=== PATIENT | male | born 1950 | race Caucasian/White ===

== ENCOUNTER 2020-10-09 15:30 | Inpatient (IN) | payer MEDICARE, OTHER ==
[~2020-10-09 15:30] MED LIST: ANTIVERT25 MG PO; ASPIRIN EC81 MG PO; CIPRO500 MG PO; FLOMAX0.4 MG PO; NORCO 5-325 TA1 EACH PO; ONDANSETRON ODT4 MG SL; SYNTHROID50 MCG PO; TRAMADOL HCL50 MG PO; VITAMIN D250000 UNIT PO
[2020-10-09 16:32] LABS: BASOPHIL 0.9 % (0-2); EOSINOPHIL 1.7 % (0-7); HCT 36.5 % (42.0-52.0); HGB 10.8 g/dl (13.2-18.0); LYMPHOCYTE 12.8 % (15-48); MCH 25.8 pg (25.0-31.0); MCHC 29.6 g/dL (32.0-36.0); MCV 87.1 fL (78.0-100.0); MONOCYTE 6.6 % (0-12); MPV 11.7 fL (6.0-9.5); NEUTROPHIL 77.6 % (41-80); PLT 280 K/uL (150-400); RBC 4.19 M/uL (4.70-6.00); RDW 14.4 % (11.5-14.0); WBC 8.5 K/uL (4.0-10.5)
[2020-10-09 16:36] LABS: PROTHROMBIN TIME 12.5 SECONDS (11.4-13.6)
[2020-10-09 16:51] LABS: ALBUMIN 3.4 g/dL (3.4-5.0); BILIRUBIN - TOTAL 0.3 mg/dL (0.2-1.0); BUN/CREAT RATIO (CALC) 17.6 RATIO; CREATININE 1.25 mg/dL (0.67-1.17); GLOBULIN (CALCULATION) 3.5 g/dL; MAGNESIUM 1.9 mg/dL (1.8-2.4); POTASSIUM 3.8 mmol/L (3.5-5.1); TOTAL PROTEIN 6.9 g/dL (6.4-8.2)
[2020-10-09 16:57] LABS: PRO-BNP 277 pg/mL (<125)
[2020-10-09 18:28] LABS: BILIRUBIN NEGATIVE (NEGATIVE); BLOOD 1+ Ery/uL (NEGATIVE); CLARITY CLEAR (CLEAR); COLOR YELLOW (YELLOW); GLUCOSE (U) NORMAL (NORMAL); LEUKOCYTES NEGATIVE Leu/uL (NEGATIVE); NITRITE NEGATIVE (NEGATIVE); PROTEIN NEGATIVE (NEGATIVE); SPECIFIC GRAVITY 1.025 (1.001-1.030); UROBILINOGEN 0.2 mg/dL (0.2-1.0)
[2020-10-09 18:48] LABS: BACTERIA TRACE; SQUAMOUS EPITHELIAL CELLS RARE
[2020-10-10 06:14] LABS: BASOPHIL 0.9 % (0-2); EOSINOPHIL 2.6 % (0-7); HGB 9.9 g/dl (13.2-18.0); LYMPHOCYTE 22.7 % (15-48); MCH 26.2 pg (25.0-31.0); MCV 87.3 fL (78.0-100.0); MONOCYTE 10.3 % (0-12); MPV 11.2 fL (6.0-9.5); NEUTROPHIL 63.3 % (41-80); NRBC 0; PLT 220 K/uL (150-400); RBC 3.78 M/uL (4.70-6.00); RDW 14.6 % (11.5-14.0); WBC 5.8 K/uL (4.0-10.5)
[2020-10-10 06:28] LABS: BUN/CREAT RATIO (CALC) 17.1 RATIO; CREATININE 1.17 mg/dL (0.67-1.17); POTASSIUM 4.2 mmol/L (3.5-5.1)
[2020-10-10] MEDS ORDERED: LIPITOR40 MG PO (11:28)
[2020-10-10] MEDS ORDERED: BRILINTA90 MG PO (11:30)
[2020-10-10] MEDS ORDERED: HYGROTON 25MG T25 MG PO (11:30)
[2020-10-10] MEDS ORDERED: VITAMIN B-121000 MC1 PO (11:31)
[2020-10-10] MEDS ORDERED: IRON159 MG PO (11:31)
[2020-10-10] MEDS ORDERED: LOPRESSOR25 MG PO (11:33)
[2020-10-10] MEDS ORDERED: ISOSORBIDE MONO30 MG PO (11:33)
[2020-10-10] MEDS ORDERED: NITROSTAT0.4 MG SL (11:35)
[2020-10-10] MEDS ORDERED: RANEXA500 MG PO (11:36)
--- NOTE | 2020-10-11 10:42 | NUR ---
Pt triggered for nutrition assessment 2' nursing admission. MST score 3; patient reporting recent wt loss. Admission wt 214lb; reported wt 216lb. Patient currently NPO for testing. Prior to NPO diet, pt taking 100% of cardiac diet; no GI issues documented. Will f/u when diet resumes.
--- NOTE | 2020-10-11 17:45 | NUR ---
PT REPORTS HE LIVES ALONE; PT REPORTS HE DOES HIS ADL'S PLEASE ADVISE OF ANY DISCHARGE NEEDS
== END 2020-10-11 18:50 | disposition home or self-care (01) | DRG 303 ==
LOC: FER 15:30 → FMS 20:02
PROVIDERS: Emergency Medicine; Nurse Practitioner; ADMIT Internal Medicine
DX: I25.10 Atherosclerotic heart disease of native coronary artery without angina pectoris (principal); D64.9 Anemia, unspecified; R10.9 Unspecified abdominal pain; E03.9 Hypothyroidism, unspecified; N20.0 Calculus of kidney; Z20.822 Contact with and (suspected) exposure to COVID-19; Z95.5 Presence of coronary angioplasty implant and graft; I25.2 Old myocardial infarction
CPT/HCPCS: 36415; 71275; 76705; 80048; 80053; 80061; 81001; 83690; 83735; 83880; 84484; 85025; 85610; 93005; J1170; J1650; J2405; J2550; J7030; Q9967; U0002

== ENCOUNTER 2020-11-01 06:04 | Inpatient (IN) | payer MEDICARE, OTHER ==
[~2020-11-01] VITALS: Ht 180.3 cm; Wt 97.2 kg
[~2020-11-01 06:04] MED LIST changes: +BRILINTA90 MG PO; +HYGROTON 25MG T25 MG PO; +IRON159 MG PO; +ISOSORBIDE MONO30 MG PO; +LIPITOR40 MG PO; +LOPRESSOR25 MG PO; +NITROSTAT0.4 MG SL; +RANEXA500 MG PO; +VITAMIN B-121000 MC1 PO
[2020-11-01 07:04] LABS: EOSINOPHIL 2.3 % (0-7); HCT 34.1 % (42.0-52.0); HGB 10.3 g/dl (13.2-18.0); LYMPHOCYTE 11.1 % (15-48); MCH 25.4 pg (25.0-31.0); MCHC 30.2 g/dL (32.0-36.0); MCV 84.2 fL (78.0-100.0); MONOCYTE 7.8 % (0-12); MPV 11.7 fL (6.0-9.5); NEUTROPHIL 77.5 % (41-80); NRBC 0; PLT 255 K/uL (150-400); RBC 4.05 M/uL (4.70-6.00); RDW 15.1 % (11.5-14.0); WBC 9.1 K/uL (4.0-10.5)
[2020-11-01 07:30] LABS: INR 1.01 (0.9-1.2); PROTHROMBIN TIME 12.6 SECONDS (11.4-13.6); PTT 28.6 SECONDS (22.2-34.7)
[2020-11-01 07:41] LABS: ALBUMIN 3.1 g/dL (3.4-5.0); BILIRUBIN - TOTAL 0.3 mg/dL (0.2-1.0); CREATININE 1.15 mg/dL (0.67-1.17); GLOBULIN (CALCULATION) 3.5 g/dL; POTASSIUM 4.2 mmol/L (3.5-5.1); TOTAL PROTEIN 6.6 g/dL (6.4-8.2)
[2020-11-01 07:48] LABS: LACTIC ACID 1.8 mmol/L (0.4-1.9); PRO-BNP 421 pg/mL (<125)
[2020-11-01 10:41] LABS: BILIRUBIN NEGATIVE (NEGATIVE); BLOOD 3+ Ery/uL (NEGATIVE); CLARITY CLEAR (CLEAR); COLOR YELLOW (YELLOW); GLUCOSE (U) NORMAL (NORMAL); LEUKOCYTES NEGATIVE Leu/uL (NEGATIVE); NITRITE NEGATIVE (NEGATIVE); PROTEIN NEGATIVE (NEGATIVE); SPECIFIC GRAVITY 1.015 (1.001-1.030); UROBILINOGEN 0.2 mg/dL (0.2-1.0)
[2020-11-01 10:52] LABS: URINARY RBC 20-50
[2020-11-01 10:53] LABS: BACTERIA TRACE
[2020-11-01 16:56] LABS: FLU B NEGATIVE B (NEGATIVE B)
[2020-11-02 06:35] LABS: BASOPHIL 0.7 % (0-2); HGB 9.5 g/dl (13.2-18.0); LYMPHOCYTE 13.1 % (15-48); MCH 25.3 pg (25.0-31.0); MCHC 29.7 g/dL (32.0-36.0); MCV 85.1 fL (78.0-100.0); MONOCYTE 11.3 % (0-12); MPV 11.6 fL (6.0-9.5); NEUTROPHIL 72.6 % (41-80); NRBC 0; PLT 231 K/uL (150-400); RBC 3.76 M/uL (4.70-6.00); RDW 15.2 % (11.5-14.0); WBC 7.1 K/uL (4.0-10.5)
[2020-11-02 07:10] LABS: BUN/CREAT RATIO (CALC) 12.9 RATIO; CREATININE 1.39 mg/dL (0.67-1.17); FT4 (FREE T4) 0.6 ng/dL (0.76-1.46); POTASSIUM 4.2 mmol/L (3.5-5.1)
[2020-11-02] MEDS ORDERED: VENTOLIN HFA IN18 GM INH (10:25)
[2020-11-02] MEDS ORDERED: AZITHROMYCIN250 MG PO (10:25)
== END 2020-11-02 11:50 | disposition home or self-care (01) | DRG 203 ==
LOC: FER 06:04 → FMS 08:56
PROVIDERS: Emergency Medicine Emergency Medical Services; ADMIT Internal Medicine
DX: J20.9 Acute bronchitis, unspecified (principal); E03.9 Hypothyroidism, unspecified; I25.10 Atherosclerotic heart disease of native coronary artery without angina pectoris; E53.8 Deficiency of other specified B group vitamins; D64.9 Anemia, unspecified; E55.9 Vitamin D deficiency, unspecified; Z20.822 Contact with and (suspected) exposure to COVID-19; I25.2 Old myocardial infarction; Z95.5 Presence of coronary angioplasty implant and graft; Z79.82 Long term (current) use of aspirin; Z79.899 Other long term (current) drug therapy; Z90.49 Acquired absence of other specified parts of digestive tract; Z98.890 Other specified postprocedural states
CPT/HCPCS: 36415; 71045; 80048; 80053; 81001; 83605; 83880; 84145; 84439; 84443; 84484; 85025; 85610; 85730; 87040; 87088; 87804; 87899; 93005; 94640; 94664; J2405; J2543; U0002

== ENCOUNTER 2021-03-07 13:50 | Day surgery (SDCO) | payer MEDICARE, OTHER ==
[~2021-03-07] VITALS: Ht 180.3 cm; Wt 97.0 kg
[~2021-03-07 13:50] MED LIST changes: +AZITHROMYCIN250 MG PO; +VENTOLIN HFA IN18 GM INH
[2021-03-07 14:31] LABS: BASOPHIL 1.1 % (0-2); EOSINOPHIL 1.4 % (0-7); HCT 31.1 % (42.0-52.0); LYMPHOCYTE 11.9 % (15-48); MCH 22.2 pg (25.0-31.0); MCHC 28.9 g/dL (32.0-36.0); MCV 76.6 fL (78.0-100.0); MPV 11.1 fL (6.0-9.5); NEUTROPHIL 77.2 % (41-80); NRBC 0; PLT 311 K/uL (150-400); RBC 4.06 M/uL (4.70-6.00); RDW 16.5 % (11.5-14.0); WBC 8.5 K/uL (4.0-10.5)
[2021-03-07 15:04] LABS: ALBUMIN 2.9 g/dL (3.4-5.0); BILIRUBIN - TOTAL 0.3 mg/dL (0.2-1.0); BUN/CREAT RATIO (CALC) 15.2 RATIO; CREATININE 1.25 mg/dL (0.67-1.17); GLOBULIN (CALCULATION) 2.7 g/dL; POTASSIUM 3.8 mmol/L (3.5-5.1); TOTAL PROTEIN 5.6 g/dL (6.4-8.2)
[2021-03-07 15:05] LABS: BILIRUBIN NEGATIVE (NEGATIVE); BLOOD 3+ Ery/uL (NEGATIVE); CLARITY CLEAR (CLEAR); COLOR YELLOW (YELLOW); GLUCOSE (U) NORMAL (NORMAL); LEUKOCYTES NEGATIVE Leu/uL (NEGATIVE); NITRITE NEGATIVE (NEGATIVE); PROTEIN 1+ mg/dL (NEGATIVE); SPECIFIC GRAVITY >=1.030 (1.001-1.030); UROBILINOGEN 0.2 mg/dL (0.2-1.0); pH 5.5 (5.0-9.0)
[2021-03-07 15:13] LABS: CORONAVIRUS 2019 SARS-COV-2 NEGATIVE (NEGATIVE); INFLUENZA A NAA NEGATIVE (NEGATIVE)
[2021-03-07 15:30] LABS: BACTERIA 1+; URINARY RBC 20-50
[2021-03-07 15:31] LABS: RENAL EPITHELIAL CELLS RARE
[2021-03-08 06:01] LABS: BASOPHIL 1.3 % (0-2); EOSINOPHIL 3.9 % (0-7); HCT 32.2 % (42.0-52.0); HGB 8.9 g/dl (13.2-18.0); LYMPHOCYTE 20.9 % (15-48); MCH 21.9 pg (25.0-31.0); MCHC 27.6 g/dL (32.0-36.0); MCV 79.3 fL (78.0-100.0); MONOCYTE 8.7 % (0-12); MPV 11.2 fL (6.0-9.5); NEUTROPHIL 64.8 % (41-80); NRBC 0; PLT 301 K/uL (150-400); RBC 4.06 M/uL (4.70-6.00); RDW 16.8 % (11.5-14.0); WBC 6.7 K/uL (4.0-10.5)
[2021-03-08 06:17] LABS: BUN/CREAT RATIO (CALC) 15.6 RATIO; CREATININE 1.28 mg/dL (0.67-1.17)
[2021-03-08] MEDS ORDERED: PROTONIX 40MG T40 MG PO (15:40)
[2021-03-08] MEDS ORDERED: PLAVIX75 MG PO (15:40)
[2021-03-08] MEDS ORDERED: ISOSORBIDE MONO60 MG PO (15:40)
== END 2021-03-08 16:35 | disposition home or self-care (01) ==
LOC: FER 13:50 → FTCU 15:57 → FER 16:45 → FTCU 03-08 16:35
PROVIDERS: Nurse Practitioner Family; ADMIT Internal Medicine
DX: R07.9 Chest pain, unspecified (principal); I25.10 Atherosclerotic heart disease of native coronary artery without angina pectoris; D64.9 Anemia, unspecified; N20.0 Calculus of kidney; J40 Bronchitis, not specified as acute or chronic; E03.9 Hypothyroidism, unspecified; I25.2 Old myocardial infarction; E55.9 Vitamin D deficiency, unspecified; E53.8 Deficiency of other specified B group vitamins; Z79.82 Long term (current) use of aspirin; Z79.899 Other long term (current) drug therapy; Z20.822 Contact with and (suspected) exposure to COVID-19; Z90.3 Acquired absence of stomach [part of]; Z95.5 Presence of coronary angioplasty implant and graft; Z87.11 Personal history of peptic ulcer disease
CPT/HCPCS: 36415; 71045; 80048; 80053; 81001; 83880; 84484; 85025; 85379; 93005; C9113; G0378; J1650; U0002

== ENCOUNTER 2021-09-08 21:38 | Emergency (ER) | payer MEDICARE, OTHER ==
[~2021-09-08 21:38] MED LIST changes: +ISOSORBIDE MONO60 MG PO; +PLAVIX75 MG PO; +PROTONIX 40MG T40 MG PO
[2021-09-08 22:54] LABS: EOSINOPHIL 3.2 % (0-7); HCT 42.2 % (42.0-52.0); HGB 13.2 g/dl (13.2-18.0); LYMPHOCYTE 16.9 % (15-48); MCH 27.6 pg (25.0-31.0); MCHC 31.3 g/dL (32.0-36.0); MCV 88.3 fL (78.0-100.0); MPV 11.7 fL (6.0-9.5); NEUTROPHIL 72.6 % (41-80); NRBC 0; PLT 252 K/uL (150-400); RBC 4.78 M/uL (4.70-6.00); RDW 14.2 % (11.5-14.0); WBC 7.2 K/uL (4.0-10.5)
[2021-09-08 23:05] LABS: BILIRUBIN NEGATIVE (NEGATIVE); BLOOD 2+ Ery/uL (NEGATIVE); COLOR YELLOW (YELLOW); GLUCOSE (U) NORMAL (NORMAL); LEUKOCYTES NEGATIVE Leu/uL (NEGATIVE); NITRITE NEGATIVE (NEGATIVE); PROTEIN NEGATIVE (NEGATIVE); SPECIFIC GRAVITY >=1.030 (1.001-1.030); UROBILINOGEN 0.2 mg/dL (0.2-1.0)
[2021-09-08 23:10] LABS: BUN/CREAT RATIO (CALC) 16.4 RATIO; CREATININE 1.22 mg/dL (0.67-1.17); POTASSIUM 3.9 mmol/L (3.5-5.1)
[2021-09-08 23:19] LABS: BACTERIA TRACE; CLARITY SLIGHTLY HAZY (CLEAR); SQUAMOUS EPITHELIAL CELLS RARE; URINARY WBC RARE
[2021-09-08 23:21] LABS: CALCIUM OXALATE CRYSTALS TRACE
[2021-09-09] MEDS ORDERED: ONDANSETRON ODT4 MG SL (03:16)
[2021-09-09] MEDS ORDERED: FLOMAX0.4 MG PO (03:16)
[2021-09-09] MEDS ORDERED: NORCO 5-325 TA1 EACH PO (03:16)
== END 2021-09-09 03:40 | disposition home or self-care (01) ==
LOC: FER 21:38
PROVIDERS: Emergency Medicine Emergency Medical Services
DX: N20.0 Calculus of kidney (principal); N28.1 Cyst of kidney, acquired; I10 Essential (primary) hypertension; Z79.899 Other long term (current) drug therapy
CPT/HCPCS: 36415; 80048; 81001; 85025; 87088; J1170; J2270; J2405; J7030

== ENCOUNTER 2022-04-02 17:58 | Emergency (ER) | payer MEDICARE, OTHER ==
[2022-04-02 18:40] LABS: BASOPHIL 0.5 % (0-2); EOSINOPHIL 1.7 % (0-7); HCT 32.3 % (42.0-52.0); HGB 9.3 g/dl (13.2-18.0); LYMPHOCYTE 9.6 % (15-48); MCH 21.8 pg (25.0-31.0); MCHC 28.8 g/dL (32.0-36.0); MCV 75.6 fL (78.0-100.0); MONOCYTE 10.1 % (0-12); MPV 11.3 fL (6.0-9.5); NEUTROPHIL 77.8 % (41-80); NRBC 0; PLT 310 K/uL (150-400); RDW 16.1 % (11.5-14.0); WBC 7.7 K/uL (4.0-10.5)
[2022-04-02 18:56] LABS: ALBUMIN 3.2 g/dL (3.4-5.0); BILIRUBIN - TOTAL 0.3 mg/dL (0.2-1.0); CREATININE 1.13 mg/dL (0.67-1.17); GLOBULIN (CALCULATION) 2.9 g/dL; TOTAL PROTEIN 6.1 g/dL (6.4-8.2)
[2022-04-02 19:02] LABS: LACTIC ACID 1.2 mmol/L (0.4-1.9)
[2022-04-02 19:08] LABS: RBC 4.27 M/uL (4.70-6.00)
[2022-04-02] MEDS ORDERED: PAXLOVID 150-11 EACH PO (19:37)
[2022-04-02] MEDS ORDERED: AZITHROMYCIN250 MG PO (19:37)
[2022-04-02] MEDS ORDERED: PREDNISONE 20MG20 MG PO (19:37)
== END 2022-04-02 20:10 | disposition home or self-care (01) ==
LOC: FER 17:58
PROVIDERS: Emergency Medicine
DX: U07.1 COVID-19 (principal); D64.9 Anemia, unspecified; I10 Essential (primary) hypertension; Z79.899 Other long term (current) drug therapy
CPT/HCPCS: 36415; 71045; 80053; 83605; 84145; 85025; 87040; U0002